=== PATIENT | male | born 1965 | race Two or more races ===

== ENCOUNTER 2025-04-08 11:14 | Emergency (ER) | payer OTHER ==
[~2025-04-08] VITALS: Ht 172.7 cm; Wt 104.3 kg
--- NOTE | 2025-04-08 12:12 | ED.PDOC ---
History of Present Illness HPI Comments Mr. Collado is a 59 year old male with PMHx of hypertension, who presents today with chief complaint of left foot pain. He states that last night he had sudden onset of progressively worsening sharp pain in the left foot, radiates up to posterior aspect of the calf, 10/10 intensity, associated with swelling and redness, aggravated by putting weight on his foot, without relieving factors. The patient currently requires a cane for ambulation due to the pain. Additionally states he almost fell twice because he unable to bear weight on the left foot. He denies fever, nausea, vomiting, presence of wounds/laceration/ulcers, numbness, weakness, recent trauma, shortness of breath, chest pain, or recent infections. He states previously had similar symptoms affecting the right foot, however this was treated with antibiotics and subsequently resolved. Presents today for further evaluation. Chief Complaint: Lower Extremity Time Seen by MD: 11:26 Primary Care Provider: Dr. Lo Allergies: Coded Allergies: NO KNOWN ALLERGIES (Unverified , 04/08/25) Home Meds Active Scripts Clindamycin Hcl (Clindamycin Hcl) 300 Mg Cap, 1 CAP PO TID for 5 Days, #15 CAP Prov:MAXI KOEHLER MD 04/08/25 Amoxicillin Trihydrate (Amoxicillin) 500 Mg Tab, 1 TAB PO TID for 5 Days, #15 TAB Prov:MAXI KOEHLER MD 04/08/25 Information Source: Patient, Spouse Mode of Arrival: Ambulatory Severity: Moderate Timing: Hours Duration: Since onset Past Medical History PAST MEDICAL HISTORY: HTN Surgical History (Other): Right hip replacement Family History Family History: Family hx of HTN Family History (Other): Family history of Gout Social History Smoker: Quit Greater Than 1 Year (Smoked 3 packs a day for 4 years with cessation 34 years ago ) Alcohol: Denies ETOH Use Drugs: Denies Drug Use Lives In: Home Constitutional: reports: chills; denies: diaphoresis, fatigue, fever, malaise, sweats, weakness EENTM: denies: blurred vision, double vision, ear bleeding, ear discharge, ear drainage, ear pain, ear ringing, eye pain, eye redness, hearing loss, mouth pain, mouth swelling, nasal discharge, nose bleeding, nose congestion, tearing, throat pain Respiratory: denies: cough, hemoptysis, orthopnea, shortness of breath Cardiovascular: reports: edema; denies: chest pain, dizzy spells, diaphoresis, Dyspnea on exertion, left arm pain, lightheadedness, palpitations, syncope Gastrointestinal: denies: abdomen distended, abdominal pain, constipated, diarrhea, dysphagia, difficulty swallowing, hematemesis, melena, nausea, vomiting Genitourinary: denies: burning, dysuria, flank pain, frequency, hematuria, incontinence, pain, urgency Neurological: denies: dizziness, fainting, headache, left sided numbness, left sided weakness, numbness, paresthesia, right sided numbness, right sided weakness, seizure, tingling, tremors, weakness Musculoskeletal: reports: others (Pain, swelling, redness of left foot ); denies: back pain, joint swelling, muscle stiffness, neck pain Integumetry: reports: change in color (Redness of left foot ); denies: bruises, dryness, laceration, lesions, lumps, rash, wounds Physical Exam General Appearance: Mild Distress HEENT: Normal ENT Inspection, PERRL/EOMI, Pharynx Normal Neck: Full Range of Motion, Non-Tender, Normal Inspection Respiratory: Chest Non-Tender, Lungs Clear, No Accessory Muscle Use, No Respiratory Distress, Normal Breath Sounds Cardiovascular: No Murmur, No Gallop, Normal Peripheral Pulses, Regular Rate/Rhythm Breast Exam: Deferred Gastrointestinal: No Organomegaly, Non Tender, No Pulsatile Mass, Normal Bowel Sounds, Other (Obese ) Genitalia: Deferred Pelvic: Deferred Rectal: Deferred Extremities: No calf tenderness, Normal capillary refill, Normal range of motion, Other (Swelling, redness of the left foot with warmth and tenderness to the touch ) Neurologic: No Motor Deficits, Normal Affect, Normal Mood Cerebellar Function: Normal Reflexes: NOT DONE Skin: Warm, Other (Redness and swelling of left foot ) Lymphatic: No Adenopathy Was a procedure done? Was a procedure done?: No Differential Dx Considerations may include: Cellulitis, Erysipela, Gout, DVT, Abrasion, Fracture X-Ray, Labs, Meds, VS Vital Signs Date Time Temp Pulse Resp B/P (MAP) Pulse Ox O2 Delivery O2 Flow Rate FiO2 04/08/25 14:54 98.1 84 18 158/85 (109) 98 98.1 04/08/25 14:54 84 18 98 Room Air 04/08/25 14:24 98.2 04/08/25 11:17 97.6 96 18 175/99 97 97.6 Lab Test 04/08/25 12:42 Range/Units White Blood Count 11.1 H 4.4-10.8 10^3/uL Red Blood Count 5.18 4.5-5.90 10^6/uL Hemoglobin 14.8 13.5-17.5 g/dL Hematocrit 44.2 41.0-53.0 % Mean Corpuscular Volume 85.4 80.0-100.0 fL Mean Corpuscular Hemoglobin 28.6 28.0-32.0 pg Mean Corpuscular Hemoglobin Concent 33.5 32.0-36.0 g/dL Red Cell Distribution Width 14.2 11.8-14.3 % Platelet Count 264 140-450 10^3/uL Mean Platelet Volume 8.7 6.9-10.8 fL Neutrophils (%) (Auto) 74.3 37.0-80.0 % Lymphocytes (%) (Auto) 13.8 10.0-50.0 % Monocytes (%) (Auto) 10.0 0.0-12.0 % Eosinophils (%) (Auto) 1.4 0.0-7.0 % Basophils (%) (Auto) 0.5 0.0-2.0 % Neutrophils # (Auto) 8.3 1.6-8.6 10 ^3/uL Lymphocytes # (Auto) 1.5 0.4-5.4 10 ^3/uL Monocytes # (Auto) 1.1 0-1.3 10 ^3/uL Eosinophils # (Auto) 0.2 0-0.8 10 ^3/uL Basophils # (Auto) 0.1 0-0.2 10 ^3/uL Nucleated Red Blood Cells 0.1 % Sodium Level 141 136-145 mmol/L Potassium Level 3.6 3.5-5.1 mmol/L Chloride Level 102 98-107 mmol/L Carbon Dioxide Level 29 20-31 mmol/L Anion Gap 10 5-15 Blood Urea Nitrogen 20 9-23 mg/dL Creatinine 1.29 0.700-1.30 mg/dL Glomerular Filtration Rate Calc 63 >90 mL/min BUN/Creatinine Ratio 15.5 10.0-20.0 Serum Glucose 94 74-106 mg/dL Uric Acid 8.2 3.7-9.2 mg/dL Calcium Level 9.7 8.7-10.4 mg/dL Current Medications Medications (Trade) Dose Ordered Sig/Solomon Route Start Time Stop Time Status Last Admin Ibuprofen (Motrin Tablet) 600 mg ONCE ONCE PO 04/08/25 12:00 04/08/25 12:27 DC 04/08/25 14:24 Patient alert. Complaining of leg pain. Ultrasound reviewed does not show any acute process. Vitals stable. Answering questions. No shortness a breath. No chest pain. Saturation pristine on room air. WBC elevation could be resolved with the drinking lot of fluids. Neutrophils within normal limits. No sign of any infection. Good skin color. No acute process. Possible early cellulitis. Was given prescription of Motrin amoxicillin antibiotic. Explained to the patient. Was told to follow up with his primary care physician. Was told to come back if there is any problem. Time of 1ST Reevaluation: 15:05 Reevaluation 1ST: Improved Patient Education/Counseling: Diagnosis, Treatment, Prognosis, Need For Follow Up Family Education/Counseling: No Family Present SEPSIS Sepsis Screen Date sepsis recognized/suspect: Apr 08, 2025 Time Sepsis recognized/suspect: 1120 Recent Procedure: No On Antibiotic Therapy: No Respiratory Rate >20: No Heart Rate >90: Yes Temp<36 C (96.8 F) or >38.3 C: No SBP <90 or MAP <65 mmHG: No New Acute Mental Status Change: No Is the patient on CPAP, BIPAP,: No Physician Orders L Foot 3 View Xray (04/08/25 11:49) Bilat Lower Dvt (04/08/25 11:49) Vital Signs Date Time Temp Pulse Resp B/P (MAP) Pulse Ox O2 Delivery O2 Flow Rate FiO2 04/08/25 14:54 98.1 84 18 158/85 (109) 98 98.1 04/08/25 14:54 84 18 98 Room Air 04/08/25 14:24 98.2 04/08/25 11:17 97.6 96 18 175/99 97 97.6 Laboratory Tests Test 04/08/25 12:42 White Blood Count 11.1 10^3/uL (4.4-10.8) H Departure 1 Departure Time of Disposition: 15:07 Impression: Primary Impression: Cellulitis Qualified Codes: L03.116 - Cellulitis of left lower limb Additional Impression: Muscle strain Disposition: 01 HOME / SELF CARE / HOMELESS Condition: Good Additional Instructions: The patient presented today due to redness, swelling, and pain in left foot e-Prescriptions Clindamycin Hcl (Clindamycin Hcl) 300 Mg Cap 1 CAP PO TID for 5 Days, #15 CAP Prov: MAXI KOEHLER MD 04/08/25 Amoxicillin Trihydrate (Amoxicillin) 500 Mg Tab 1 TAB PO TID for 5 Days, #15 TAB Prov: MAXI KOEHLER MD 04/08/25 Discharged With: Self Critical Care Note Critical Care Time?: No Stability Stability form required: No Heart Score Heart Score: Heart Score Response (Comments) Value History N/A 0 EKG N/A 0 Age N/A 0 Risk Factors N/A 0 Troponin N/A 0 Total 0 NICKI DENISE Apr 08, 2025 12:11 MAXI KOEHLER MD Apr 08, 2025 15:09
--- NOTE | 2025-04-08 12:35 | DVH ---
Bilateral lower extremity venous duplex Clinical History: R/o DVT Comparison: None Technique: Duplex Doppler evaluation of the deep venous systems of both lower extremities from the common femora l veins to the popliteal veins including color Doppler and spectral/pulsed waveform analysis was perf ormed. Findings: RIGHT SIDE: The common femoral vein demonstrates appropriate compressibility and waveform variability. There is compressibility/patency of the great saphenous vein at the proximal thigh. The femoral vein demonstrates appropriate compressibility and waveform variability. The deep femoral vein demonstrates appropriate compressibility and waveform variability. The popliteal vein demonstrates appropriate compressibility and waveform variability. There is normal compressibility at the tibioperoneal trunk. LEFT SIDE: The common femoral vein demonstrates appropriate compressibility and waveform variability. There is compressibility/patency of the great saphenous vein at the proximal thigh. The femoral vein demonstrates appropriate compressibility and waveform variability. The deep femoral vein demonstrates appropriate compressibility and waveform variability. The popliteal vein demonstrates appropriate compressibility and waveform variability. There is normal compressibility at the tibioperoneal trunk. Impression: No right or left femoropopliteal venous thrombosis.
--- NOTE | 2025-04-08 12:47 | DVH ---
EXAM: XY L FOOT 3 VIEW XRAY CLINICAL INDICATION: Foot pain TECHNIQUE: XY L FOOT 3 VIEW XRAY Comparison: None FINDINGS/IMPRESSION: There is no evidence of acute fracture or dislocation. The visualized joint space is well maintained. The alignment is anatomical. There is no radiopaque foreign body.
[2025-04-08 13:09] LABS: Hematocrit 44.2 % (41.0-53.0); Hemoglobin 14.8 g/dL (13.5-17.5); Mean Corpuscular Hemoglobin 28.6 pg (28.0-32.0); Mean Corpuscular Volume 85.4 fL (80.0-100.0); Nucleated Red Blood Cells % 0.1 %
[2025-04-08 13:15] LABS: Chloride 102 mmol/L (98-107); Potassium 3.6 mmol/L (3.5-5.1); Sodium 141 mmol/L (136-145)
[2025-04-08 13:16] LABS: Anion Gap 10 (5-15); Carbon Dioxide 29 mmol/L (20-31)
[2025-04-08 13:17] LABS: Calcium 9.7 mg/dL (8.7-10.4)
[2025-04-08 13:21] LABS: Uric Acid 8.2 mg/dL (3.7-9.2)
[2025-04-08 13:22] LABS: BUN/Creatinine Ratio 15.5 (10.0-20.0); Blood Urea Nitrogen 20 mg/dL (9-23); Glucose 94 mg/dL (74-106)
[2025-04-08] MEDS: IBUPROFEN 600 MG TAB PO ONE (14:24)
[2025-04-08 14:54] VITALS: BP 158/85; PULSE 84; RESP 18; TEMP 98.1; O2SAT 98
[2025-04-08] MEDS ORDERED: AMOX500T3 PO (15:09)
[2025-04-08] MEDS ORDERED: CLIN1CAP70 PO (15:09)
== END 2025-04-08 16:48 | disposition home or self-care (01) ==
LOC: ER 11:14
DX: S86.912A Strain of unspecified muscle(s) and tendon(s) at lower leg level, left leg, initial encounter (principal); L03.116 Cellulitis of left lower limb; I10 Essential (primary) hypertension; Z79.899 Other long term (current) drug therapy; Z96.641 Presence of right artificial hip joint; W19.XXXA Unspecified fall, initial encounter; Y93.89 Activity, other specified; Y92.89 Other specified places as the place of occurrence of the external cause; Y99.8 Other external cause status
CPT/HCPCS: 36415; 73630; 80048; 84550; 85025; 93970